=== PATIENT | female | born 1955 | race Caucasian/White ===

== ENCOUNTER 2020-05-26 20:06 | Emergency (ER) | payer OTHER ==
[~2020-05-26] VITALS: Ht 160 cm; Wt 61.9 kg
[2020-05-26 20:11] VITALS: Ht 160 cm; Wt 61.9 kg
[2020-05-26 20:49] LABS: BASOPHIL % 1.1 % (0-2); PLATELET COUNT 137 x10^3mcL (130-400)
[2020-05-26 20:50] LABS: RED CELL DISTRIBUTION WIDTH 15.9 % (11.5-14.5)
[2020-05-26 20:58] LABS: ALBUMIN 3.6 g/dL (3.4-5.0); ALKALINE PHOSPHATASE 151 U/L (46-116); ALT/SGPT 26 U/L (14-59); AST/SGOT 25 U/L (15-37); BILIRUBIN TOTAL 0.62 mg/dL (0.20-1.00); C REACTIVE PROTEIN 1.8 mg/dL (<=0.9); CALCIUM 7.6 mg/dL (8.5-10.1); CARBON DIOXIDE 27.6 mmol/L (21-32); CHLORIDE SERUM 99 mmol/L (98-107); GLUCOSE SERUM 294 mg/dL (74-106); LACTIC DEHYDROGENASE (LDH) 190 U/L (100-190); SODIUM SERUM 138 mmol/L (136-145); TOTAL PROTEIN, SERUM 7.2 g/dL (6.4-8.2)
[2020-05-26 21:00] LABS: GFR1 7 mL/min
[2020-05-26 21:02] LABS: CREATININE SERUM 6.3 mg/dL (0.6-1.0)
[2020-05-26 22:18] VITALS: BP 124/66
== END 2020-05-26 22:18 | disposition home or self-care (01) ==
LOC: ED 20:06
PROVIDERS: Specialist
DX: U07.1 COVID-19 (principal); K21.9 Gastro-esophageal reflux disease without esophagitis; E11.22 Type 2 diabetes mellitus with diabetic chronic kidney disease; Z98.890 Other specified postprocedural states
CPT/HCPCS: 83880; 87804; Q0092